=== PATIENT | male | born 1995 ===

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

== ENCOUNTER 2019-05-19 09:34 | Emergency (ER) | payer OTHER ==
--- OUTSIDE RECORDS SUMMARY | 2019-05-19 09:41 | XMS REPORT | Continuity of Care Document ---
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 Problems Active Problems Provider Date Dysuria Nikki Carver MD, PHD Onset: 02/07/2019 Gilman - lesion Nikki Carver MD, PHD Onset: 12/13/2018 Verruca plantaris Nikki Carver MD, PHD Onset: 12/13/2018 Myopia Nikki Carver MD, PHD Onset: 12/13/2018 Vitamin D deficiency Nikki Carver MD, PHD Onset: 12/13/2018 Adult health examination Nikki Carver MD, PHD Onset: 12/13/2018 Social History Type Date Description Comments Sex Unknown Tobacco Use Start: Unknown Never Smoked Cigarettes ETOH Use Denies alcohol use Tobacco Use Start: Unknown Patient has never smoked Smoking Status Reviewed: 05/15/19 Patient has never smoked Allergies, Adverse Reactions, Alerts Description No Known Drug Allergies Medications Active Medications SIG Qnty Indications Ordering Provider Date Amoxicillin 1 tabs twice a 20tabs J02.9 Jeromy, 05/15/2019 875mg day x 10 days CHRISTIANE Pickard Tablets D2000 Ultra Strength 1 cap by mouth 60caps E55.9 Nikki Carver, 2018 twice a day lulú GALARZA, PHD 2000Unit Capsules Calcium 600 1 tab by mouth Unknown 600mg every daily Tablets Immunizations Description No Information Available Vital Signs Date Vital Result Comment 05/15/2019 2:19pm BP Systolic 124 mmHg BP Diastolic 76 mmHg Body Temperature 98.2 F Heart Rate 73 /min Respiratory Rate 20 /min Weight 194.00 lb Pain Level 8 O2 % BldC Oximetry 100 % 02/07/2019 2:39pm BP Systolic 138 mmHg BP Diastolic 78 mmHg Body Temperature 96.2 F Heart Rate 78 /min Respiratory Rate 16 /min Height 75 inches 6'3" Weight 192.00 lb BMI (Body Mass Index) 24.0 kg/m2 BSA (Body Surface Area) 2.16 m2 Epps body weight in kilograms 89 kg O2 % BldC Oximetry 98 % Results Test Acquired Facility Test Result H/L Range Note Date Laboratory 05/15/2019 [facility] A neg Pos, Neg, test finding Strep Invalid Urine Culture 01/31/2019 [facility] Urine Culture NO GROWTH: 1, [address] <[place] [address] NOTE> [phone] Chlam/GC/Trich 01/31/2019 [facility] Ur Trichomonas NEGATIVE Negative omonas PCR, Ur [address] vaginalis,[place] [address] [phone] Ur Chlamydia trachomatis,PCR NEGATIVE Negative Ur Neisseria gonorrhoeae,PCR NEGATIVE Negative 3 Ua RFX Micro & Culture 01/31/2019 [facility] Urine Color YELLOW Yellow II [address] [place], [place] [id number] [phone] Urine Clarity CLEAR Clear Urine Glucose - Dipstick NEGATIVE mg/dL Negative Urine Bilirubin - Dipstick NEGATIVE Negative Urine Ketone NEGATIVE mg/dL Negative Urine Specific Printer 1.010 Normal 1.010-1.030 Urine Blood NEGATIVE Negative Urine PH 7.0 Normal 6.5-7.5 Urine Protein - Dipstick 30 mg/dL High Negative Urine Urobilinogen - Dipstick 1.0 E.U./dL Normal 0.2-1.0 Urine Nitrite - Dipstick NEGATIVE Negative Urine Leuk Esterase NEGATIVE Negative Source: URINE, CLEAN CAT <SEE NOTE> 4 1 R30.0 2 NO GROWTH: FINAL REPORT 3 A negative result for either C. trachomatis and/or N. gonorrhoeae does not preclued an infection because results are dependent on adequate specimen collection, absence of inhibitors, and sufficient DNA to be detected. 4 URINE, CLEAN CATCH Procedures Date Code Description Status 12/13/2018 79762 Visual Screening Test Of Visual Acuity, Quantitative, Completed Bilateral 12/13/2018 12577 Excision Of Warts Less Than 15 Completed 12/13/2018 31506 Pare Hyperkeratotic Lesion, Single Completed Medical Devices Description No Information Available Encounters Type Date Location Provider Dx Diagnosis Office Visit 05/15/2019 [facility] Jeromy J02.9 Acute pharyngitis, 2:15p Hope Frye, CHRISTIANE unspecified Office Visit 02/07/2019 Family Medicine Nikki Carver, R30.0 Dysuria 2:30p Carlos Etienne MD, PHD Assessments Date Code Description Provider 05/15/2019 J02.9 Acute pharyngitis, unspecified Hope Pinzon, CHRISTIANE 02/07/2019 R30.0 Dysuria Nikki Carver MD, PHD 12/13/2018 Z00.00 Encounter for general adult medical Nikki Carver MD, PHD examination without abnormal findings 12/13/2018 E55.9 Vitamin D deficiency, unspecified Nikki Carver MD, PHD 12/13/2018 H52.13 Myopia, bilateral Nikki Carver MD, PHD 12/13/2018 L84 Gilman - lesion Nikki Carver MD, PHD Plan of Treatment 05/15/2019 - Hope Pinzon, FNPJ02.9 Acute pharyngitis, unspecifiedNew Medication:Amoxicillin 875 mg - 1 tabs twice a day x 10 daysComments:Use amoxicillin as directed, Warm saltwater gargles, Get lots of rest. Maintain good clear fluid intake to stay well hydrated. Frequent handwashing to prevent spread of germs. Please avoid exposure totobacco smoke and/or polluted air. Take Tylenol (acetaminophen), Advil(ibuprofen), or alleve (naproxen) as needed for fever or aches, dosage according to package directions. Please follow-up with your primary care provider within 1 week for recheck.You can return to work or school when fever free for 24 hours without the use of fever reducing medication.- Functional Status Description No Information Available Mental Status Description No Information Available Referrals Description No Information Available
[2019-05-19 09:58] VITALS: BP 133/76
--- NOTE | 2019-05-19 10:10 | UC ---
Nausea/Vomiting/Diarrhea HPI - HPI Summary HPI Summary: 24 year old male presents with complaint of nausea and vomiting which began 6 days ago. Was diagnosed with strep throat 5 days ago. Last episode of vomiting was about one hour ago. Denies hematemesis. Notes gastric pain/tightening. No diarrhea, no nausea now. No further fevers and sore throat has resolved. He has only been taking the Amoxicillin prescribed for his strep throat. He had a normal bm this morning, no hematochezia nor melena. - History of Current Complaint Chief Complaint: UCGI Stated Complaint: VOMITING Time Seen by Provider: 05/19/19 09:48 Hx Obtained From: Patient Onset/Duration: Gradual Onset, Lasting Days - 4 days Pain Intensity: 5 Location: Epigastric Character: Dull, Cramping Aggravating Factor(s): Nothing Alleviating Factor(s): Vomiting Diarrhea Presence: No - Allergies/Home Medications Allergies/Adverse Reactions: Allergies Allergy/AdvReac Type Severity Reaction Status Date / Time No Known Allergies Allergy Verified 05/19/19 09:58 Home Medications: Home Medications Amoxicillin 875 mg PO BID 05/19/19 [History Confirmed 05/19/19] PMH/Surg Hx/FS Hx/Imm Hx Previously Healthy: Yes - recently strep throat - Surgical History Surgical History: Yes Surgery Procedure, Year, and Place: SCREW IN FOOT-left - Family History Known Family History: Positive: Non-Contributory - Social History Alcohol Use: Occasionally Alcohol Amount: 2 wine, none recelty Substance Use Type: Marijuana Substance Use Comment - Amount & Last Used: 05/18/19 Smoking Status (MU): Never Smoked Tobacco Review of Systems All Other Systems Reviewed And Are Negative: Yes Constitutional: Negative: Fever, Chills, Fatigue Skin: Negative: Rash, Bruising Eyes: Positive: Negative ENT: Positive: Negative Respiratory: Positive: Negative Cardiovascular: Positive: Negative Gastrointestinal: Positive: Abdominal Pain - epigastric, worse before he vomits , Vomiting, Nausea. Negative: Diarrhea Genitourinary: Positive: Negative Motor: Positive: Negative Neurovascular: Positive: Negative Musculoskeletal: Positive: Negative Neurological: Positive: Negative Psychological: Positive: Negative Is Patient Immunocompromised?: No Physical Exam Triage Information Reviewed: Yes Appearance: Well-Appearing, No Pain Distress, Well-Nourished Vital Signs: Initial Vital Signs Temp 97.4 F 12/15/19 09:46 Pulse 68 05/19/19 09:46 Resp 17 05/19/19 09:46 BP 133/76 05/19/19 09:46 Pulse Ox 100 05/19/19 09:46 Vital Signs Reviewed: Yes Eyes: Positive: Conjunctiva Clear ENT: Positive: Normal ENT inspection, Pharynx normal, TMs normal. Negative: Tonsillar swelling Neck: Positive: Supple, Nontender, No Lymphadenopathy Respiratory: Positive: Lungs clear, Normal breath sounds, No respiratory distress. Negative: Crackles, Rhonchi, Wheezing Cardiovascular: Positive: RRR, No Murmur, Pulses Normal, Brisk Capillary Refill. Negative: Tachycardia Abdomen Description: Positive: Soft, Other: - epigastric tenderness to palpation , no masses, no rebound.. Negative: Distended, Guarding, McBurney's Point Tenderness, Peritoneal Signs Bowel Sounds: Positive: Present Musculoskeletal Exam: Normal Neurological Exam: Normal Psychological Exam: Normal Skin Exam: Normal Naus/Vom/Diarrhea Course/Dx - Course Course Of Treatment: States he has a sensitive stomach and would not tolerate liquid medication like Maalox. Given Zofran and famotadine with improvement of sx. Noted improvement of sx. - Differential Dx/Diagnosis Differential Diagnoses - Male: Peptic Ulcer Disease, Adverse Drug Effect, Gerd, Gastroenteritis (Viral) Provider Diagnosis: Gastritis Discharge ED - Sign-Out/Discharge Documenting (check all that apply): Patient Departure All imaging exams completed and their final reports reviewed: No Studies - Discharge Plan Condition: Stable Disposition: HOME Prescriptions: Famotidine TAB* [Pepcid 20 MG TAB*] 40 mg PO DAILY 14 Days #14 tab Ondansetron TAB* [Zofran 4 MG Tab*] 8 mg PO Q6H PRN #14 tab PRN Reason: Nausea Patient Education Materials: Gastritis (ED) Referrals: Nikki Carver MD [Primary Care Provider] - Additional Instructions: Recommend a bland diet, continue pushing fluids. Take medication as prescribed and follow-up with your Primary Care Physician if your symptoms persist or worsen. If you note blood with vomiting or with you bowel movement or develop a fever or sever abdominal pain, I recommend further evaluation in the Emergency Department. - Billing Disposition and Condition Condition: STABLE Disposition: Home
[2019-05-19] MEDS ORDERED: Ondansetron ODT TAB* 4 MG PO ONE (10:22)
[2019-05-19] MEDS ORDERED: Famotidine TAB* 20 MG PO ONE (10:23)
== END 2019-05-19 11:24 | disposition home or self-care (01) ==
LOC: UCCORT 09:34
DX: K29.70 Gastritis, unspecified, without bleeding (principal)
CPT/HCPCS: 99212; A9270-GY; G0463